=== PATIENT | female | born 1995 | race Caucasian/White ===

== ENCOUNTER 2023-06-14 01:10 | Emergency (ER) | payer OTHER, SELFPAY ==
--- NOTE | ~2023-06-14 | CT_ITS ---
Noncontrast CT scan of the cervical spine Technique: Multiple contiguous axial [address] images of the cervical spine were obtained and rec onstructed in 2D sagittal and coronal planes on the acquisition scanner. Dose reduction technique was used on this scan by utilizing automated exposure control, adjustment of the mA and/or kV according to patient size. The dose-length product (DLP) was 122.61 mGy-cm. Clinical History: Pain Findings: No fractures or dislocations. There is mild reversal normal cervical lordosis. The interve rtebral disc spaces are preserved. No prevertebral soft tissue swelling. Impression: No fracture or subluxation of the cervical spine. Reviewed, dictated and finalized at location . Impression: No fracture or subluxation of the cervical spine.
--- NOTE | ~2023-06-14 | XR_ITS ---
Right Shoulder Technique: AP and scapular Y views were obtained. Clinical History: Pain Findings: No fracture or dislocation is seen. Osseous alignment is anatomic. The glenohumeral and acr omioclavicular joint spaces are preserved. Soft tissues are unremarkable. Impression: Unremarkable right shoulder radiographs. Reviewed, dictated and finalized at [facility]. Impression: Unremarkable right shoulder radiographs.
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
[2023-06-14 01:07] VITALS: BP 112/76; PULSE 75; RESP 12; TEMP 37.1; O2SAT 100
[2023-06-14 01:42] LABS: Basophils Percent Auto 0.3 % (0.2-1.2); Eosinophils Absolute Auto 0.2 K/mm3 (0-0.3); Hematocrit 38.2 % (37.0-47.0); Hemoglobin 12.6 g/dL (12.0-15.0); Immature Granulocyte Absolute 0.01 K/mm3 (0.00-0.031); Immature Granulocyte Percent A 0.2 % (0-0.5); Lymphocytes Absolute Auto 1.46 K/mm3 (0.9-3.2); Mean Corpuscular Hemoglobin 29.7 pg (26-34); Mean Corpuscular Volume 90.1 fl (80-100); Monocytes Absolute Auto 0.5 K/mm3 (0.1-0.6); Monocytes Percent Auto 7.5 % (2.6-8.5); Neutrophils Absolute Auto 4.5 K/mm3 (1.3-6.7); Platelet Count Result 228 k/mm3 (150-375); Red Blood Count 4.24 M/mm3 (4.2-5.4); Red Cell Distribution Width 12.2 % (11.5-14.5); White Blood Count 6.7 K/mm3 (4.5-10.0)
[2023-06-14 01:54] LABS: Prothrombin Time 13.8 Seconds (11.1-14.7)
[2023-06-14 01:55] LABS: Partial Thromboplastin Time 27.9 Seconds (22.3-36.8)
[2023-06-14 01:57] LABS: Lactic Acid Reflex 1.3 mmol/L (0.7-2.0)
[2023-06-14 02:31] LABS: Lipase 98 U/L (23-300); Magnesium 2.1 mg/dL (1.6-2.3)
[2023-06-14 02:35] LABS: Alanine Aminotransferase 17 U/L (6-35); Albumin Level 3.8 g/dL (3.5-5.1); Alkaline Phosphatase 76 U/L (38-126); Anion Gap 5 mmol/L (4-12); Aspartate Amino Transferase 22 U/L (14-36); Bilirubin,Total 0.2 mg/dL (0.2-1.3); Blood Urea Nitrogen 11 mg/dL (7-17); Calcium 8.8 mg/dL (8.4-10.2); Carbon Dioxide 26 mmol/L (22-30); Chloride 104 mmol/L (98-107); Estimated CRCL calculation 81 ml/min; Estimated Glomerular Filt Rate > 60; Glucose 97 mg/dL (65-110); Potassium 4.3 mmol/L (3.4-5.0); Sodium 135 mmol/L (137-145)
[2023-06-14 02:39] LABS: Creatine Kinase 70 U/L (30-135)
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
[2023-06-14 02:53] LABS: Estimated CRCL calculation 71 ml/min; Estimated Glomerular Filt Rate > 60
[2023-06-14 03:29] LABS: Ethanol < 10 mg/dL (<10)
== END 2023-06-14 03:10 | disposition home or self-care (01) ==
PROVIDERS: Emergency Provider Emergency Medicine
DX: S49.91XA Unspecified injury of right shoulder and upper arm, initial encounter (principal); F15.10 Other stimulant abuse, uncomplicated; V48.6XXA Car passenger injured in noncollision transport accident in traffic accident, initial encounter
CPT/HCPCS: 36415; 70450; 71260; 72125; 73030; 74177; 80053; 80307; 82550; 83605; 83690; 83735; 85025; 85610; 85730; 99284; Q9967